=== PATIENT | female | born 1975 | race Caucasian/White ===

== ENCOUNTER 2018-02-17 23:16 | Emergency (ER) | payer OTHER ==
[~2018-02-17] VITALS: Ht 167.6 cm; Wt 71.7 kg
[2018-02-17 23:17] VITALS: BP 156/90
--- NOTE | 2018-02-17 23:25 | NUR ---
PT TAKEN TO BED 4
--- NOTE | 2018-02-17 23:30 | NUR ---
PT CAME IN C/O LEFT SHOULDER PAIN THAT IS RADIATING TO LEFT SIDE OF NECK AND LEFT ELBOW. PT DENIES ANY TRAUMA. PT STATED THAT SHE WOKE UP WITH THE PAIN 5 DAYS AGO AND IT HAS BEEN CONSTANT DULL AND ACHING PAIN, CURRENTLY 07/28. A&OX3, RR EVEN AND UNLABORED. ABLE TO MOVE BOTH ARMS BUT PAIN GETS WORSE WHEN LEFT ARM IS MOVING UPWARD. SKIN INTACT. CAP REFILL WITHIN [address] PIERSON MADE AWARE.
--- NOTE | 2018-02-17 23:31 | NUR ---
Dr. Cormier evaluating patient at bedside.
[2018-02-17] MEDS ORDERED: DIAZEPAM 5 MG TAB PO ONE (23:45)
[2018-02-17] MEDS ORDERED: KETOROLAC 30 MG/ML VIAL IM ONE (23:45)
[2018-02-17] MEDS ORDERED: HYDROcodone/APAP 5/325 MG 1 TAB TAB PO ONE (23:45)
--- NOTE | 2018-02-17 23:57 | NUR ---
MEDS ADMINSITERED ORDERED. PT TOLERATED WELL. WILL CONTINUE TO MONITOR.
--- NOTE | 2018-02-18 00:41 | NUR ---
Ban tee in [facility] - 02/18/18 at 0041 by TAMIKO PT TAKEN TO CT
--- NOTE | 2018-02-18 00:41 | NUR ---
PT TAKEN TO CT SCAN VIA WC AT THIS TIME.
--- NOTE | 2018-02-18 00:57 | NUR ---
PT RETURN FROM CT
[2018-02-18] MEDS ORDERED: fentaNYL 0.05 MG/ML VIAL NS ONE (01:00)
--- NOTE | 2018-02-18 01:00 | NUR ---
PT STATED THE PAIN IS DECREASED TO 7/10, BUT IT IS STILL THERE. DR. PIERSON MADE AWARE.
[2018-02-18] MEDS ORDERED: KETOROLAC 30 MG/ML VIAL IM ONE (01:45)
--- NOTE | 2018-02-18 01:50 | NUR ---
PT STATES PT DECREASED TO 02/[address] PIERSON MADE AWARE.
[2018-02-18 02:12] VITALS: BP 127/88
--- NOTE | 2018-02-18 02:13 | NUR ---
Patient discharged with v/s stable. Written and verbal after care instructions given and explained. Patient alert, oriented and verbalized understanding of instructions. Ambulatory with steady gait. All questions addressed prior to discharge. ID band removed. Patient advised to follow up with PMD. Rx of naprosyn 500mg, norco 5mg-325mg given. Patient educated on indication of medication including possible reaction and side effects. Opportunity to ask questions provided and answered.
== END 2018-02-18 02:13 | disposition home or self-care (01) ==
LOC: MED 23:16
DX: M50.221 Other cervical disc displacement at C4-C5 level (principal); M54.12 Radiculopathy, cervical region
CPT/HCPCS: 72125; 81002; 81025; 96372; 99284; J1885; J3010